=== PATIENT | female | born 1990 | race Caucasian/White ===

== ENCOUNTER 2018-11-24 05:30 | Inpatient (IN) | payer OTHER ==
[2018-11-24] MEDS ORDERED: Butorphanol Tartrate 1 MG/ML VIAL SLOW IVP PRN (10:47)
[2018-11-24] MEDS ORDERED: NS w/ Oxytocin 10 units 500 ML IV SCH ×2 (10:47)
[2018-11-24] MEDS ORDERED: NS / Oxytocin 40 units/1000ml 1,000 ML IV PRN (10:47)
[2018-11-24] MEDS ORDERED: Acetaminophen/Codeine 30-300mg Tablet PO PRN (10:47)
[2018-11-24] MEDS ORDERED: Ibuprofen 800 MG TAB PO PRN (10:47)
[2018-11-24] MEDS ORDERED: Lidocaine 1% (PF) 30 ML VIAL SC PRN (10:47)
[2018-11-24] MEDS ORDERED: Ondansetron PF 4 MG/2 ML Vial IVP PRN ×2 (10:47→16:59)
[2018-11-24] MEDS ORDERED: Promethazine HCl 25 MG/ML VIAL IM PRN (10:47)
[2018-11-24] MEDS: Lactated Ringer's 1,000 ML IV SCH ×2 (10:52→13:52)
[2018-11-24] MEDS ORDERED: Lidocaine 2% MPF 10 ML AMP (For Epidural Use) ONE (11:11)
[2018-11-24] MEDS ORDERED: Bupivacaine/Epinephrine 0.25% 30 ML VIAL ONE (11:11)
[2018-11-24 11:28] VITALS: BMI 32.5
[2018-11-24 11:52] LABS: Mean Corpuscular HGB CONC 33.2 g/dL (32.0-36.0); Mean Corpuscular Hemoglobin 29.3 pg (27.0-31.0); Mean Corpuscular Volume 88.5 fL (78.0-98.0); Mean Platelet Volume 7.1 fL (7.4-10.4); Platelet Count 241 thou/uL (130-400); RBC Distribution Width 13.2 % (11.5-14.5); Red Blood Cell (RBC) Count 4.43 mill/uL (4.20-5.40); White Blood Cell (WBC) Count 10.7 thou/uL (4.8-10.8)
[2018-11-24 12:30] LABS: Syphilis Antibody Nonreactive (Nonreactive); Syphilis Antibody Index 0.16 S/CO (<1.00 Non-Reactive)
[2018-11-24] MEDS ORDERED: Fentanyl 4 mcg/Bup 0.1% Cadd 100 ML ONE (13:11)
[2018-11-24 13:18] LABS: HBSAg Index 0.33 S/CO (0-0.99); Hep B Surf Ag Non-Reactive S/CO (NonReactive)
--- NOTE | 2018-11-24 16:31 | PDOC.OPDEL ---
OB Operative/Delivery Note Delivery Dr/Surgeon: Ralph Pre-Delivery Diagnosis: elective induction Procedure/Post Delivery Dx: spontaneous vaginal delivery Weeks gestation: 39 Anesthesia: epidural - Findings A Sex: male - 1 min: 8 - 5 min: 9 - Additional Findings/Plan Placenta delivered: spontaneous Repaired Obstetrical Laceration: right labial Estimated blood loss: 100ml Post delivery plan: routine recovery
[2018-11-24] MEDS ORDERED: Benzocaine-Menthol 82.5 ML CAN TOP PRN (16:59)
[2018-11-24] MEDS ORDERED: diphenhydrAMINE 25 MG CAP PO PRN (16:59)
[2018-11-24] MEDS ORDERED: Preparation H Ointment 28 GM TUBE PR PRN (16:59)
[2018-11-24] MEDS ORDERED: Bisacodyl 10 MG SUPP PR PRN (16:59)
[2018-11-24] MEDS ORDERED: Lanolin Ointment 7 GM TUBE TOP PRN (16:59)
[2018-11-24] MEDS ORDERED: NS / Oxytocin 40 units/1000ml 1,000 ML IV SCH (16:59)
[2018-11-24] MEDS ORDERED: Milk Of Magnesia 30 ML UDCUP PO PRN (16:59)
[2018-11-24] MEDS ORDERED: HYDROcodone/Acetaminophen 5/325 mg Tablet PO PRN ×2 (16:59)
[2018-11-24] MEDS ORDERED: Adacel (T-DAP) 0.5 ML SYRINGE IM ONE (16:59)
[2018-11-24] MEDS: Ferrous Sulfate 325 MG TAB PO SCH (22:14)
[2018-11-24] MEDS: Docusate Calcium (SURFAK) 240 MG CAP PO SCH (22:14)
[2018-11-24] MEDS: Ibuprofen 800 MG TAB PO SCH (22:14)
[2018-11-25] MEDS: Ibuprofen 800 MG TAB PO SCH ×2 (06:27→14:29)
[2018-11-25 08:04] VITALS: BP 100/60; TEMP 98.2
--- NOTE | 2018-11-25 08:11 | PDOC.PP ---
Post Progress Note Post Day #: 1 Subjective: doing well, no concerns, interested in discharge this evening PO intake tolerated: yes Flatus: yes Ambulation: yes Vital Signs (12 hours) Temp Pulse Resp BP Pulse Ox 11/25/18 08:03 98.2 F 81 20 100/60 97 11/24/18 20:25 100 Weight Weight 184 lb - Physical Examination General: NAD Respiratory: non-labored breathing Fundus firm & at: below umb Skin: no rash Psychiatric: A&Ox3 Result Diagrams: 11/24/18 11:05 Additional Labs: Post Labs Blood Type B POSITIVE 11/24/18 11:05 Hep Bs Antigen Non-Reactive S/CO (NonReactive) 11/24/18 11:05 (1) 39 weeks gestation of Code(s): Z3A.39 - 39 WEEKS GESTATION OF Status: Acute (2) Vaginal delivery Code(s): O80 - ENCOUNTER FOR FULL-TERM UNCOMPLICATED DELIVERY Status: Acute - Assessment/Plan PPD1 doing well, sp IOL @ 39 weeks. Plan for DC this PM.
[2018-11-25] MEDS: Ferrous Sulfate 325 MG TAB PO SCH (09:15)
[2018-11-25] MEDS: Docusate Calcium (SURFAK) 240 MG CAP PO SCH (09:15)
== END 2018-11-25 17:45 | disposition home or self-care (01) | DRG 807 ==
LOC: L&D 10:23 → 3SW 20:18
PROVIDERS: ADMIT Obstetrics & Gynecology; ATTEND Obstetrics & Gynecology
PROC: 10E0XZZ Delivery of Products of Conception, External Approach (ICD-10-PCS; principal; 2018-11-24)
DX: O70.0 First degree perineal laceration during delivery (principal); Z37.0 Single live birth; Z3A.39 39 weeks gestation of pregnancy
CPT/HCPCS: 36415; 51702; 85027; 86780; 86850; 86900; 86901; 87340; J2001; J2590